=== PATIENT | female | born 1990 | race Caucasian/White ===

== ENCOUNTER 2020-02-19 18:33 | Emergency (ER) | payer BC ==
[2020-02-19] MEDS ORDERED: Ketorolac 0.5% Ophth Soln 5 ML Bottle EYELF ONE (19:02)
[2020-02-19] MEDS ORDERED: Ciprofloxacin 0.3% Ophth Soln 5 ML Bottle EYELF ONE (19:03)
[2020-02-19] MEDS ORDERED: Acetaminophen/oxyCODONE 325-5 MG Tab PO ONE (19:08)
--- NOTE | 2020-02-19 19:08 | EDM.PDOC ---
ED HPI GENERAL MEDICAL PROBLEM - General Chief Complaint: Eye Problems Stated Complaint: LEFT EYE PAIN Time Seen by Provider: 02/19/20 18:50 Source of Information: Reports: Patient History Limitations: Reports: No Limitations - History of Present Illness INITIAL COMMENTS - FREE TEXT/NARRATIVE: 29-year-old female presents to the ED with severe left thigh pain. The history suggest that she has not worn her contact lenses for several days but did have them in earlier today. She then started to develop irritation of the left eye and removed the contact lens which only made the pain much worse. She did follow-up with traffic control technician at [facility] this morning due to the pain and was prescribed tobramycin ophthalmic drops with dexamethasone. However the pain intensified over the ensuing 6 hours and she went back to see him. 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 Discontinue the dexamethasone and tobramycin drops. Patient came to the ED because she could no longer stand the pain and the excessive tearing from her left eye with nasal congestion. When seen in the ED she could not open her left eye at all due to the severity of the pain. The room was darkened and she had proparacaine ophthalmic drops placed to in the inferior eyelid and then 1 from above which took her pain away complete ly. I was then able to inspect the eye thoroughly including eversion of the upper eyelid and no foreign bodies were identified. Slit-lamp exam reveals a linear scratch from 8:00 to 4 o'clock position across the lower portion of the cornea approximately 1.5 m from the limbus. This likely was induced by a fingernail tip. Treatment will be ketorolac eyedrops 2 drops to the left eye every 6 hours for the next 24 hours. Cipro ophthalmic drops 2 drops every 8 hours for the next 2 days to prevent secondary infection. Patient is already taken some Benadryl and I plan on sending her home with 2 Percocet 5/325 mg tablets to take for pain relief and to allow sleep for the next 6 to 8 hours to allow the cornea to start to heal. This corneal abrasion will probably take close to 30 hours to heal completely. Her eye will be double patch closed to prevent further blinking and irritation of the corneal abrasion. This should stay on for the next 18 hours at a minimum and preferably 24 hours. Onset: Today, Sudden Onset Date: 02/19/20 Duration: Hour(s): Location: Reports: Face Quality: Reports: Ache (And severe photophobia with excessive tearing. This started early this morning after taking her contact lens out.), Burning, Sharp, Stabbing Severity: Severe (And a 10) Improves with: Reports: None (Her with rest and closing her eye in a dark room.), Rest Worsens with: Reports: Other (Since with exposure to) Context: Denies: Activity ( bright light), Exercise, Lifting, Sick Contact, Trauma, Other Associated Symptoms: Denies: No Other Symptoms, Confusion, Chest Pain, Cough, cough w sputum, Diaphoresis, Fever/Chills, Headaches, Loss of Appetite, Malaise, Nausea/Vomiting, Rash, Seizure, Shortness of Breath, Syncope Treatments KILN PUSHER: Reports: Other (see below) Left Eye Pain Score (Numeric/FACES): 8 - Related Data Allergies Allergy/AdvReac Type Severity Reaction Status Date / Time adhesive tape Allergy Rash Verified 02/19/20 18:48 Home Meds: Home Meds Cholecalciferol (Vitamin D3) [Vitamin D3] 1,000 units PO DAILY 02/19/20 [History] Fish Oil/Blue-3 Fatty Acids [Fish Oil 1,000 MG] 1,000 mg PO DAILY 02/19/20 [History] Lactobacillus Acidophilus [Probiotic] 1 cap PO DAILY 02/19/20 [History] Multivitamin 1 tab PO BID 02/19/20 [History] oxyCODONE HCl/Acetaminophen [Percocet 5-325 mg Tablet] 1 - 2 each PO Q4H PRN #8 tablet 02/19/20 [Rx] Past Medical History HEENT History: Reports: Other (See Below) (Wears contact lenses.) Social & Family History - Living Situation & Occupation Living situation: Reports: Single Occupation: Employed ED ROS GENERAL - Review of Systems Review Of Systems: See Below Constitutional: Reports: Decreased Appetite. Denies: Fever, Chills, Malaise, Weakness, Fatigue, Weight Loss HEENT: Reports: Contact Lenses, Eye Discharge, Eye Pain (Does have tearing.), Glasses Respiratory: Reports: No Symptoms Cardiovascular: Reports: No Symptoms Endocrine: Reports: No Symptoms GI/Abdominal: Reports: No Symptoms : Reports: No Symptoms Musculoskeletal: Reports: No Symptoms Skin: Reports: No Symptoms Neurological: Reports: No Symptoms Psychiatric: Reports: No Symptoms Hematologic/Lymphatic: Reports: No Symptoms Immunologic: Reports: No Symptoms ED EXAM GENERAL W FULL EYE - Physical Exam Exam: See Below Exam Limited By: No Limitations General Appearance: Alert, WD/WN, Severe Distress (Not open her left eye at all in the [place] room. Excessive tearing and nasal congestion evident.), Other (Temperature is 36.6 with a heart rate of 100 respiratory is 18 BP 140/80 pulse ox 99% on room air) Eye Exam: Left Eye: Conjunctival Injection (3 minimal.), Bilateral Eye: PERRL Eyelids: Left: Erythema (He is erythema of both the upper and lower eyelids. No purulent exudate.), Lid Everted for Exam (No foreign bodies identified.) Conjunctiva & Sclera: Left: Normal Appearance (Mild conjunctival injection.) Extraocular Movements: Bilateral: Intact Pupils: Normal Accommodation Pupillary Size: Bilateral: 6 mm Pupillary Reaction: Bilateral: Brisk Anterior Chamber: Bilateral: Normal Appearance Posterior Chamber: Bilateral: Normal Funduscopic Course - Vital Signs Last Recorded V/S: Last Vital Signs Temp 36.6 C 02/19/20 18:45 Pulse 100 02/19/20 18:45 Resp 18 02/19/20 18:45 BP 140/80 02/19/20 18:45 Pulse Ox 99 02/19/20 18:45 - Orders/Labs/Meds Meds: Medications Discontinued Medications Generic Name Dose Route Start Last Admin Trade Name Willieq PRN Reason Stop Dose Admin Ciprofloxacin 2.5 ml 02/19/20 19:03 Ciloxan 0.3% Ophth Soln EYELF 02/19/20 19:04 ONETIME ONE Ketorolac Tromethamine 3 ml 02/19/20 19:02 Acular 0.5% Ophth Soln EYELF 02/19/20 19:03 ONETIME ONE Oxycodone/Acetaminophen 2 tab 02/19/20 19:08 Percocet 325-5 Mg PO 02/19/20 19:09 ONETIME ONE - Radiology Interpretation Free Text/Narrative:: 29-year-old female presents the ED due to severe left eye pain and excessive tearing and severe photophobia. Pain started shortly after she took her contact lenses out early this morning. She had worn them for quite some time but had them in overnight. She has seen traffic control technician x2 today who initially prescribed TobraDex drops for suspected conjunctivitis and after the second time stop the drops and added acyclovir drops thinking that she may have a herpes simplex dendritic ulcer causing her severe pain. She could not stand the pain and that is the reason she came to the ED. 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 Examination after topical anesthetic which relieved her pain completely likely from a fingernail across the lower portion of her cornea from 8:00 to 4 o'clock position 1.5 mm from the limbus. Patient will be treated with ketorolac ophthalmic drops 2 drops to the left eye every 6 hours for the next 24 hours. Cipro ophthalmic drops 2 drops every 8 hours for 2 days to prevent secondary infection. Sent home with 2 Percocet 5/325 mg tablets to be taken with 50 mg of Benadryl to provide sedation and pain relief for 6 to 8 hours so that the cornea will have time to heal. The eyes to be double patch closed for the next 18 to 24 hours. Follow-up advised if not completely back to normal in 36 hours time. Departure - Departure Time of Disposition: 19:04 Disposition: Home, Self-Care 01 Condition: Fair Clinical Impression: Corneal abrasion, left Qualifiers: Encounter type: initial encounter Qualified Code(s): S05.02XA - Injury of conjunctiva and corneal abrasion without foreign body, left eye, initial encounter Corneal abrasion Qualifiers: Encounter type: initial encounter Laterality: left Qualified Code(s): S05.02XA - Injury of conjunctiva and corneal abrasion without foreign body, left eye, initial encounter - Discharge Information *PRESCRIPTION DRUG MONITORING PROGRAM REVIEWED*: Not Applicable *COPY OF PRESCRIPTION DRUG MONITORING REPORT IN PATIENT AUGUSTO: Not Applicable Prescriptions: oxyCODONE HCl/Acetaminophen [Percocet 5-325 mg Tablet] 1 - 2 each PO Q4H PRN #8 tablet PRN Reason: pain relief. Referrals: Sil Ward PA-C [Primary Care Provider] - Forms: ED Department Discharge Additional Instructions: Evaluation in the emergency room today in regards to severe pain left eye starting early this morning. Examination reveals that the left eye is extremely sensitive to light with excessive tearing. You our contact lens wearer and have the man recently. Examination with naked vision and slight magnification did not reveal any abnormalities under the eyelid or in the lower eyelid. Slit-lamp exam reveals a large linear abrasion across the lower portion of the cornea from 8:00 to the floor o'clock position 1.5 mm from the limbus. This may well of happen from a fingernail while extracting your contact lens. Treatment is ketorolac eyedrops 2 drops every 6 hours as needed to reduce pain and inflammation for 24 hours. Cipro ophthalmic drops 2 drops every 8 hours for the next 2 days to prevent secondary infection. The cornea will heal over the next 24 to 30 hours. Suggest double patching the eye closed for the next 16 to 18 hours. If it is still very painful after taking out the patch at that time then you can replace it for another 6 to 8 hours. Suggest tonight 2 Percocet tablets with 50 mg of Benadryl to you allow you to sleep for 6 to 8 hours which will control the pain and allow the cornea to start to heal. Sepsis Event Note (ED) - Evaluation Sepsis Screening Result: No Definite Risk - Focused Exam Vital Signs: Vital Signs Temp Pulse Resp BP Pulse Ox 02/19/20 18:45 36.6 C 100 18 140/80 99
== END 2020-02-19 19:30 | disposition home or self-care (01) ==
LOC: JD.ED 18:33
DX: S05.02XA Injury of conjunctiva and corneal abrasion without foreign body, left eye, initial encounter (principal); Z91.048 Other nonmedicinal substance allergy status; X58.XXXA Exposure to other specified factors, initial encounter
CPT/HCPCS: 99283; A9270

== ENCOUNTER 2023-11-07 00:57 | Emergency (ER) | payer BC ==
[2023-11-07] MEDS ORDERED: Sodium Chloride 0.9% 10 ML Syringe FLUSH PRN (00:59)
[2023-11-07] MEDS ORDERED: Sodium Chloride 0.9% 1,000 ML IV SCH (01:00)
[2023-11-07] MEDS: Acetaminophen 325 MG Tab ONE (02:26)
[2023-11-07 03:13] LABS: APPEARANCE,URINE CLEAR (Clear); BILIRUBIN,URINE NEGATIVE (Negative); COLOR,URINE YELLOW (Yellow); GLUCOSE,URINE NEGATIVE (Negative); KETONES,URINE NEGATIVE (Negative); LEUKOCYTE ESTERASE,URINE 1+ (Negative); NITRITE,URINE NEGATIVE (Negative); OCCULT BLOOD,URINE TRACE-INTACT (Negative); PROTEIN,URINE NEGATIVE (Negative); UROBILINOGEN,URINE 0.2 (0.2-1.0)
[2023-11-07 03:14] LABS: BASOPHILS PERCENT AUTO 0.2 % (0.0-1.0); EOSINOPHILS ABSOLUTE AUTO 0.1 K/mm3 (0.0-0.4); EOSINOPHILS PERCENT AUTO 0.9 % (0.0-6.0); HEMATOCRIT 39.5 % (37.0-47.0); HEMOGLOBIN 13.1 gm/dl (12.0-16.0); IMMATURE GRAN ABSOLUTE AUTO 0.04 K/mm3 (0.00-0.05); IMMATURE GRAN PERCENT AUTO 0.4 % (0.0-0.4); LYMPHOCYTES ABSOLUTE AUTO 0.7 K/mm3 (1.0-4.8); MEAN CORPUSCULAR HEMOGLOBIN 30.5 pg (28.0-32.0); MEAN CORPUSCULAR HGB CONC 33.2 g/dl (32.0-36.0); MEAN CORPUSCULAR VOLUME 91.9 fl (83.0-99.0); MEAN PLATELET VOLUME 11.6 fl (9.4-12.3); MONOCYTES ABSOLUTE AUTO 0.6 K/mm3 (0.0-0.8); MONOCYTES PERCENT AUTO 5.1 % (0.0-8.0); NEUTROPHILS ABSOLUTE AUTO 9.8 K/mm3 (1.8-7.7); NEUTROPHILS PERCENT AUTO 87.4 % (41.0-71.0); PLATELET COUNT,PLT 269 K/mm3 (150-400)
[2023-11-07 03:18] LABS: BACTERIA,URINE NOT SEEN /hpf (FEW); EPITHELIAL CELLS,URINE 0-5 /hpf (0-5); MUCUS,URINE NOT SEEN /hpf (FEW); RBC,URINE 0-5 /hpf (0-5); WBC CLUMPS,URINE RARE /hpf (NOT SEEN)
[2023-11-07 03:19] LABS: ANION GAP 13.7 (5-15); BUN/CREATININE RATIO 16.4 (14-18); CALCIUM 8.9 mg/dL (8.5-10.1); CREATININE 1.1 mg/dL (0.55-1.02); EST CRCL DRUG DOSING (CG) 65.46 mL/min; POTASSIUM,K 3.7 mEq/L (3.5-5.1)
[2023-11-07 03:20] LABS: A/G RATIO 0.8 (1-2); BILIRUBIN TOTAL 0.3 mg/dL (0.2-1.0)
[2023-11-07 03:21] LABS: LACTIC ACID 0.5 mmol/L (0.4-2.0)
[2023-11-07] MEDS: Doxycycline Monohydrate 100 MG Cap PO ONE (03:50)
== END 2023-11-07 03:48 | disposition home or self-care (01) ==
LOC: JD.ED 00:57
DX: N39.0 Urinary tract infection, site not specified (principal); Z91.048 Other nonmedicinal substance allergy status; Z79.899 Other long term (current) drug therapy
CPT/HCPCS: 36415; 80053; 81001; 81003; 83605; 83690; 85025; 87040; 87086; 99283; A9270